=== PATIENT | male | born 1985 | race Caucasian/White ===

== ENCOUNTER 2024-03-19 19:43 | Emergency (ER) | payer OTHER ==
[2024-03-19] MEDS ORDERED: Lidocaine Viscous Sol 2% 15 ml UD Cup ONE (20:22)
[2024-03-19] MEDS ORDERED: Lidocaine 1% w/Epinephrine 1:100K 20 ML VIAL ONE (20:22)
[2024-03-19] MEDS ORDERED: AMOXicillin 250 MG CAP ONE (20:25)
== END 2024-03-19 20:50 | disposition home or self-care (01) ==
LOC: NAV ERS 19:43
DX: K04.4 Acute apical periodontitis of pulpal origin (principal); Z86.19 Personal history of other infectious and parasitic diseases
CPT/HCPCS: 40800